=== PATIENT | male | born 1960 | race Caucasian/White ===

== ENCOUNTER 2024-09-16 14:02 | Emergency (ER) | payer BC, MEDICARE, SELFPAY ==
--- NOTE | 2024-09-16 14:05 | ED_ITS ---
HPI - Skin/Abscess/Foreign Bdy General Chief complaint: Skin/Abscess/Foreign Body Stated complaint: Right Leg Pain and Rash Time Seen by Provider: 09/16/24 14:05 Source: patient Mode of arrival: ambulatory Limitations: no limitations History of Present Illness HPI narrative: Natan is a 64-year-old male patient presenting to the clinic today with complaints of right leg pain/rash. He reports the rash started over the last 24 hours. States that he has been having some sciatic pain prior to the rash development. Feels as though he has got numbness and tingling going down his leg. Denies any saddle anesthesia or loss of bowel or bladder. Denies any back injury or current back pain. Related Data Home Medications ?Medication ?Instructions ?Recorded ?Confirmed ?Last Taken ?Type losartan 100 mg tablet mg 09/16/24 Unknown History rosuvastatin 40 mg tablet mg 09/16/24 Unknown History Allergies Allergy/AdvReac Type Severity Reaction Status Date / Time No Known Allergies Allergy Verified 09/16/24 14:23 Review of Systems Review of Systems: Pertinent positives per HPI. Patient denies any fever, chills, rash, headache, visual changes, dizziness, cough, runny nose, sore throat, shortness of breath, chest pain, palpitations, nausea, vomiting, diarrhea, constipation, abdominal pain, or any urinary issues. [facility] Family History Family History (Updated 10/24/15 @ 23:19 by DOCTOR UNKNOWN) Father Family history of diabetes mellitus in first degree relative Social History Social History Alcohol intake: current Comments At the time of my signature, I reviewed and agree with the nursing past medical, surgical, social, and family history. There is no relevant family history pertinent to the patient complaint. Exam Narrative: General: Well-developed, well nourished, in no apparent distress Head: Normocephalic, atraumatic. Cardio: Regular rate and rhythm, s1 and s2 normal, no murmur appreciated. Resp: Clear to auscultation bilaterally, no rhonchi, rales, wheezing or rubs. Musculoskeletal: No deformity, tender to palpation along the right posterior thigh/leg, grossly normal range of motion, muscle strength strong and equal, peripheral pulse strong, no edema, no cyanosis, normal gait and station Integumentary: [place], warm, and dry, intact without lesion, red, raised, tender, blistered like rash with erythemic base to the posterior right thigh and tib-fib Course Course Emergency Course: Portions of this record may have been created with voice recognition software. Level of Care: Express Care Visit Vital Signs Vital signs: Vital Signs Temperature 37.1 C 09/16/24 14:15 Pulse Rate 74 09/16/24 14:15 Respiratory Rate 20 09/16/24 14:15 Blood Pressure 172/82 H 09/16/24 14:15 Pulse Oximetry 97 09/16/24 14:15 Oxygen Delivery Room Air 09/16/24 14:15 Temperature 37.1 C 09/16/24 14:15 Pulse Rate 74 09/16/24 14:15 Respiratory Rate 20 09/16/24 14:15 Blood Pressure 172/82 H 09/16/24 14:15 Pulse Oximetry 97 09/16/24 14:15 Oxygen Delivery Room Air 09/16/24 14:15 Vital signs reviewed MDM - Skin/Abscess/Foreign Bdy MDM Narrative Medical decision making narrative: At the time of visit patient is resting comfortably on the exam table. Patient appears to be nontoxic. Plan: I suspect patient has sciatica pain/herpes zoster. Prescription for valacyclovir and Medrol Dosepak was sent to the pharmacy. Supportive measures were discussed with the patient and they voiced understanding discharge instructions and agrees to treatment plan. Return precautions reviewed Differential Diagnosis Differential diagnosis: Likely abscess of skin or subcutaneous tissue, viral exanthem, dermatophytosis, urticaria, herpes zoster, allergic reaction to drug, cellulitis, eczema, insect bites, impetigo, contact dermatitis and other (Low back pain, lumbar strain, lumbar radiculopathy) Discharge Plan Discharge Clinical Impression: Sciatica of right side Herpes zoster Qualifiers: Herpes zoster complications: without complications Qualified Code(s): B02.9 - Zoster without complications Patient Disposition: Home Condition: Stable Instructions: Antibiotic Form, Shingles (ED), Sciatica (ED) Additional Instructions: Take any prescription medication only as prescribed-Valtrex and Medrol Dosepak May use ice to the affected area Consider massage or chiropractor adjustment if this was discussed with provider May use blue emu, lidocaine patches, or asper cream to affected area- do not apply heat or ice directly over cream- can cause burn. Keep rash covered-especially if it is draining-it is considered no longer contagious when the rash crusted over Stay way from immunocompromised persons, person's, or people who have not been vaccinated against chickenpox Complete appropriate back stretching exercises. Follow up with your PCP in 3-5 days if symptom persist. Patient Language: Pashto Prescriptions: New methylprednisolone [Medrol (Jesse)] 4 mg tablets,dose pack See Rx Instructions PO .COMPLEX Qty: 21 0RF Rx Instructions: orally per package directions valacyclovir [Valtrex] 1 gram tablet 1,000 mg PO Q8H 7 Days Qty: 21 0RF No Action losartan 100 mg tablet rosuvastatin 40 mg tablet Follow-up/Referrals: Sheri,DO Jignesh [Primary Care Provider] - Time of Disposition: 14:26 Quality NIHSS Nursing Documentation ED NIHSS nursing documentation: reviewed/agree
[2024-09-16 14:15] VITALS: BP 172/82; PULSE 74; RESP 20; TEMP 37.1; O2SAT 97
== END 2024-09-16 14:34 | disposition home or self-care (01) ==
PROVIDERS: Emergency Provider Nurse Practitioner Family; PCP Student in an Organized Health Care Education/Training Program
DX: M54.31 Sciatica, right side (principal); B02.9 Zoster without complications; I10 Essential (primary) hypertension; E78.00 Pure hypercholesterolemia, unspecified
CPT/HCPCS: 99213; G0463